=== PATIENT | male | born 1990 | race African-American/Black ===

== ENCOUNTER 2020-01-21 22:13 | Emergency (ER) | payer MEDICAID, OTHER ==
[~2020-01-21] VITALS: Ht 172.7 cm; Wt 77.0 kg
[2020-01-21] MEDS ORDERED: KETOROLAC 30MG/ML VIAL IM ONE (23:15)
[2020-01-22 00:20] VITALS: BP 129/62
== END 2020-01-22 00:34 | disposition home or self-care (01) ==
LOC: ER 22:13
DX: S09.90XA Unspecified injury of head, initial encounter (principal); Y04.0XXA Assault by unarmed brawl or fight, initial encounter; Y93.89 Activity, other specified; Y92.89 Other specified places as the place of occurrence of the external cause; Y99.8 Other external cause status
CPT/HCPCS: 71045; 96372; 99283; J1885